=== PATIENT | female | born 1990 | race Caucasian/White ===

== ENCOUNTER 2018-04-20 13:19 | Emergency (ER) | payer OTHER ==
[2018-04-20 13:44] VITALS: RESP 18; TEMP 98.1
[2018-04-20] MEDS ORDERED: ACETAMINOPHEN TAB 500 MG TAB PO STA (14:20)
--- NOTE | 2018-04-20 14:31 | ED ---
General Adult HPI - General Chief complaint: Psychiatric Symptoms Stated complaint: EPS Kristie, 12 weeks preg Time Seen by Provider: 04/20/18 13:35 Source: patient, RN notes reviewed Mode of arrival: ambulatory Limitations: no limitations - History of Present Illness Initial comments: This a 27-year-old female with past medical history significant for bipolar and depression. Patient states she's been removed off all her medications she is 12 weeks and patient states since then he she's become more depressed. Patient states she's been cutting herself on her thighs a few days ago she did significant today. Patient states she fears that she might continue self harming. Patient denies any suicidal homicidal ideations. Patient denies any drinking or drug use. Patient states she has a headache currently denies any other symptoms. Patient states she has not been sick from the and denies any abdominal pain. - Related Data Home Medications Medication Instructions Recorded Confirmed Rev-Pewf-Mmyvb Acid 1 cap PO DAILY 04/20/18 04/20/18 [-U Capsule (formulary)] Allergies Allergy/AdvReac Type Severity Reaction Status Date / Time ciprofloxacin [From Cipro] Allergy Rash/Hives Verified 04/20/18 14:03 metronidazole [From Flagyl] Allergy Rash/Hives Verified 04/20/18 14:03 Review of Systems ROS Statement: Those systems with pertinent positive or pertinent negative responses have been documented in the HPI. ROS Other: All systems not noted in ROS Statement are negative. Past Medical History Past Medical History: Asthma Additional Past Medical History / Comment(s): borderline PD, agoraphobia History of Any Multi-Drug Resistant Organisms: None Reported Past Surgical History: Cholecystectomy Past Psychological History: ADD/ADHD, Anxiety, Bipolar, Depression, Panic Disorder Smoking Status: Current every day smoker Past Alcohol Use History: None Reported Past Drug Use History: None Reported General Exam - General Exam Comments Initial Comments: GENERAL: Patient is well-developed and well-nourished. Patient is nontoxic and well- hydrated and is in no acute distress. ENT: Neck is soft and supple. No significant lymphadenopathy is noted. Oropharynx is clear. Moist mucous membranes. Neck has full range of motion without eliciting any pain. EYES: The sclera were anicteric and conjunctiva were pink and moist. Extraocular movements were intact and pupils were equal round and reactive to light. Eyelids were unremarkable. PULMONARY: Unlabored respirations. Good breath sounds bilaterally. No audible rales rhonchi or wheezing was noted. CARDIOVASCULAR: There is a regular rate and rhythm without any murmurs gallops or rubs. ABDOMEN: Soft and nontender with normal bowel sounds. No palpable organomegaly was noted. There is no palpable pulsatile mass. SKIN: Skin is clear with no lesions or rashes and otherwise unremarkable. NEUROLOGIC: Patient is alert and oriented x3. Cranial nerves II through XII are grossly intact. Motor and sensory are also intact. Normal speech, volume and content. Symmetrical smile. MUSCULOSKELETAL: Normal extremities with adequate strength and full range of motion. LYMPHATICS: No significant lymphadenopathy is noted PSYCHIATRIC: Patient states very depressed has been self harming but she denies any suicidal ideations. Limitations: no limitations Course Vital Signs 04/20/18 13:37 Temperature 98.1 F Pulse Rate 107 H Respiratory 18 Rate Blood Pressure 120/74 O2 Sat by Pulse 100 Oximetry Medical Decision Making - Medical Decision Making Patient was evaluated by [facility] and decided the patient could follow-up as an outpatient. - Lab Data Lab Results 04/20/18 Range/Units 14:07 Urine Opiates Screen Not Detected (NotDetected) Ur Oxycodone Screen Not Detected (NotDetected) Urine Methadone Screen Not Detected (NotDetected) Ur Propoxyphene Screen Not Detected (NotDetected) Ur Barbiturates Screen Not Detected (NotDetected) U Tricyclic Antidepress Not Detected (NotDetected) Ur Phencyclidine Scrn Not Detected (NotDetected) Ur Amphetamines Screen Not Detected (NotDetected) U Methamphetamines Scrn Not Detected (NotDetected) U Benzodiazepines Scrn Not Detected (NotDetected) Urine Cocaine Screen Not Detected (NotDetected) U Marijuana (THC) Screen Not Detected (NotDetected) Disposition Clinical Impression: Depression, Self-harming behavior Disposition: HOME SELF-CARE Condition: Good Instructions (If sedation given, give patient instructions): Depression (ED) Is patient prescribed a controlled substance at d/c from ED?: No Referrals: Deangelo Dolan MD [Primary Care Provider] - 1-2 days Time of Disposition: 16:38
[2018-04-20 15:19] LABS: Amphetamine Screen,Urine Not Detected (NotDetected); Barbiturate Screen,Urine Not Detected (NotDetected); Benzodiazepines Screen,Urine Not Detected (NotDetected); Cocaine Screen,Urine Not Detected (NotDetected); Methadone Screen, Urine Not Detected (NotDetected); Opiate Screen,Urine Not Detected (NotDetected); Oxycodone Screen, Urine Not Detected (NotDetected); Phencyclidine Screen,Urine Not Detected (NotDetected); Tricyclic Antidepressant,Urine Not Detected (NotDetected); Urn Cannabinoid Scrn Not Detected (NotDetected)
[2018-04-20] MEDS ORDERED: diphenhydrAMINE 50 MG/ML 1 ML VIAL IM STA (16:48)
[2018-04-20 16:57] VITALS: BP 104/62; PULSE 101
== END 2018-04-20 17:03 | disposition home or self-care (01) ==
LOC: EC 13:19
DX: O99.341 Other mental disorders complicating pregnancy, first trimester (principal); F31.30 Bipolar disorder, current episode depressed, mild or moderate severity, unspecified; O99.89 Other specified diseases and conditions complicating pregnancy, childbirth and the puerperium; R51 Headache; Z91.5 Personal history of self-harm; O99.331 Smoking (tobacco) complicating pregnancy, first trimester; F17.200 Nicotine dependence, unspecified, uncomplicated; Z88.1 Allergy status to other antibiotic agents; Z3A.12 12 weeks gestation of pregnancy
CPT/HCPCS: 80306; 99284; 96372; J1200

== ENCOUNTER → 2018-04-22 | Outpatient (CLI) | payer OTHER ==
[2018-04-22 17:03] LABS: HCT 35.5 % (34.0-46.0); HGB 11.8 gm/dL (11.4-16.0); MCH 28.5 pg (25.0-35.0); MCHC 33.3 g/dL (31.0-37.0); MCV 85.4 fL (80.0-100.0); Mean Platelet Volume 6.6; Platelet Count 347 k/uL (150-450); RBC 4.16 m/uL (3.80-5.40); RDW 13.6 % (11.5-15.5); WBC 12.5 k/uL (3.8-10.6)
[2018-04-22 17:23] LABS: Glucose 89 mg/dL (74-99)
[2018-04-23 03:25] LABS: HIV 1 AB Non-Reactive (Non-Reactive); HIV AB P24 Non-Reactive (Non-Reactive); HIV P24 AG Non-Reactive (Non-Reactive)
[2018-04-23 05:35] LABS: Toxoplasma Antibody (IgM) <3.0 AU/mL (<8.0)
--- NOTE | 2018-04-23 07:04 | US ---
EXAMINATION TYPE: Transabdominal DATE OF EXAM: 04/22/2018 4:36 PM COMPARISON: NONE CLINICAL HISTORY: Z36 CONFIRM DATES. EXAM PERFORMED: Transabdominal (TA) EXAM MEASUREMENTS: GESTATIONAL AGE / DATING Physician Established: Not yet established Dates by LMP: LMP unknown Dates by First Scan: No previous this is first scan Dates by Current Scan for: (12 weeks/4 days) EDC: 10/31/2018 MATERNAL ANATOMY Uterus: 14.4 x 7.4 x 10.3 cm Right Ovary: 2.9 x 3.1 x 2.2 cm Left Ovary: 3.1 x 2.7 x 2.7 cm Post CDS / Adnexa: wnl Presence of free fluid: none GESTATION / SURVEY CRL: 5.9 cm (12 weeks/4 days) Yolk Sac (normal less than 6mm): not identified Heart Rate: 150 bpm Rhythm: Normal IUP: Viable IUP Date of LMP: unknown, irregular cycles Beta HcG (if available): not available Viable IUP at 12 Weeks, 4 days. IMPRESSION: Viable 12 weeks 4 days with a heart rate 150 bpm.
== END | disposition home or self-care (01) ==
LOC: EDUNIT# 15:40 → RADUSWWP 16:16
PROVIDERS: ATTEND Obstetrics & Gynecology
DX: Z36.89 Encounter for other specified antenatal screening (principal); Z34.81 Encounter for supervision of other normal pregnancy, first trimester
CPT/HCPCS: 36415; 76801; 82565; 82947; 85027; 86762; 86777; 86778; 86780; 87340; 87390

== ENCOUNTER 2018-06-02 14:04 | Emergency (ER) | payer OTHER ==
[2018-06-02] MEDS ORDERED: SODIUM CHLORIDE 0.9% 1,000 ML IV STA (14:39)
--- NOTE | 2018-06-02 14:42 | ED ---
General Adult HPI - General Chief complaint: Nausea/Vomiting/Diarrhea Stated complaint: vomiting/18 wks preg Time Seen by Provider: 06/02/18 14:20 Source: patient, RN notes reviewed Mode of arrival: ambulatory Limitations: no limitations - History of Present Illness Initial comments: 28-year-old female, G 4, P3, currently 18 weeks presenting for evaluation of nausea and vomiting. Patient has had approximately 3 days of nausea and vomiting. She was sent from her spray drier's office for evaluation and concern for dehydration. She's had no consultations with this . She was denying lower abdominal pain, denies current vaginal bleeding. Denies dysuria. She states she has had some decrease in urine output. - Related Data Home Medications Medication Instructions Recorded Confirmed Fnf-Lgyr-Aaiso Acid 1 cap PO DAILY 04/20/18 06/02/18 [-U Capsule (formulary)] Acetaminophen Tab [Tylenol Tab] 1,000 mg PO Q6HR PRN 06/02/18 06/02/18 QUEtiapine [SEROquel] 100 mg PO DAILY 06/02/18 06/02/18 Sertraline [Zoloft] 50 mg PO DAILY 06/02/18 06/02/18 Allergies Allergy/AdvReac Type Severity Reaction Status Date / Time ciprofloxacin [From Cipro] Allergy Rash/Hives Verified 06/02/18 14:42 metronidazole [From Flagyl] Allergy Rash/Hives Verified 06/02/18 14:42 Review of Systems ROS Statement: Those systems with pertinent positive or pertinent negative responses have been documented in the HPI. ROS Other: All systems not noted in ROS Statement are negative. Past Medical History Past Medical History: Asthma Additional Past Medical History / Comment(s): borderline PD, agoraphobia History of Any Multi-Drug Resistant Organisms: None Reported Past Surgical History: Cholecystectomy Past Psychological History: ADD/ADHD, Anxiety, Bipolar, Depression, Panic Disorder Smoking Status: Former smoker Past Alcohol Use History: None Reported Past Drug Use History: None Reported General Exam Limitations: no limitations General appearance: alert, in no apparent distress Head exam: Present: atraumatic, normocephalic Eye exam: Present: normal appearance, PERRL ENT exam: Present: normal exam Neck exam: Present: normal inspection. Absent: tenderness, meningismus Respiratory exam: Present: normal lung sounds bilaterally. Absent: respiratory distress, wheezes Cardiovascular Exam: Present: regular rate, normal rhythm GI/Abdominal exam: Present: soft, other (Gravid). Absent: distended, tenderness, guarding, rebound Extremities exam: Present: normal inspection, normal capillary refill. Absent: pedal edema Neurological exam: Present: alert, oriented X3. Absent: motor sensory deficit Psychiatric exam: Present: normal affect, normal mood Skin exam: Present: warm, dry, intact. Absent: cyanosis, diaphoretic Course Vital Signs 06/02/18 14:15 Temperature 98.2 F Pulse Rate 100 Respiratory 20 Rate Blood Pressure 120/76 O2 Sat by Pulse 96 Oximetry Medical Decision Making - Medical Decision Making 28 -year-old female presenting for evaluation of nausea vomiting and concern for dehydration. Patient is currently 18 weeks , no cold medications with . Workup in the emergency department reveals mild leukocytosis, 14.8, hemoglobin stable 13.4, electrolytes and kidney function within normal limits, urinalysis negative for ketones, negative for infection. Given IV hydration. No vomiting while in the emergency department. Patient was given strict return parameters including increased vomiting, decreased urine output, lack of stool output including flatus. She will monitor closely for signs of obstruction. She will return with any worsening or changing symptoms. - Lab Data Result diagrams: 06/02/18 14:34 06/02/18 14:34 Lab Results 06/02/18 06/02/18 06/02/18 Range/Units 14:34 14:34 14:49 WBC 14.8 H (3.8-10.6) k/uL RBC 4.80 (3.80-5.40) m/uL Hgb 13.4 (11.4-16.0) gm/dL Hct 40.0 (34.0-46.0) % MCV 83.3 (80.0-100.0) fL MCH 27.9 (25.0-35.0) pg MCHC 33.6 (31.0-37.0) g/dL RDW 14.2 (11.5-15.5) % Plt Count 429 (150-450) k/uL Neutrophils % 76 % Lymphocytes % 17 % Monocytes % 4 % Eosinophils % 1 % Basophils % 0 % Neutrophils # 11.2 H (1.3-7.7) k/uL Lymphocytes # 2.4 (1.0-4.8) k/uL Monocytes # 0.6 (0-1.0) k/uL Eosinophils # 0.2 (0-0.7) k/uL Basophils # 0.0 (0-0.2) k/uL Sodium 137 (137-145) mmol/L Potassium 4.5 (3.5-5.1) mmol/L Chloride 106 (98-107) mmol/L Carbon Dioxide 21 L (22-30) mmol/L Anion Gap 10 mmol/L BUN 8 (7-17) mg/dL Creatinine 0.39 L (0.52-1.04) mg/dL Est GFR (CKD-EPI)AfAm >90 (>60 ml/min/1.73 sqM) Est GFR (CKD-EPI)NonAf >90 (>60 ml/min/1.73 sqM) Glucose 80 (74-99) mg/dL Calcium 9.8 (8.4-10.2) mg/dL Total Bilirubin 0.5 (0.2-1.3) mg/dL AST 22 (14-36) U/L ALT 28 (9-52) U/L Alkaline Phosphatase 80 (38-126) U/L Total Protein 7.5 (6.3-8.2) g/dL Albumin 4.2 (3.5-5.0) g/dL Lipase 38 (23-300) U/L Urine Color Yellow Urine Appearance Clear (Clear) Urine pH 6.0 (5.0-8.0) Ur Specific Almo 1.026 (1.001-1.035) Urine Protein Trace H (Negative) Urine Glucose (UA) Negative (Negative) Urine Ketones Negative (Negative) Urine Blood Negative (Negative) Urine Nitrite Negative (Negative) Urine Bilirubin Negative (Negative) Urine Urobilinogen <2.0 (<2.0) mg/dL Ur Leukocyte Esterase Negative (Negative) Disposition Clinical Impression: Dehydration, Nausea and vomiting during Disposition: HOME SELF-CARE Condition: Good Instructions (If sedation given, give patient instructions): Acute Nausea and Vomiting (ED) Is patient prescribed a controlled substance at d/c from ED?: No Referrals: Deangelo Dolan MD [Primary Care Provider] - 1-2 days Time of Disposition: 15:39
[2018-06-02 15:04] LABS: Appearance,Urine Clear (Clear); Bilirubin,Urine Negative (Negative); Blood,Urine Negative (Negative); Color,Urine Yellow; Glucose,Urine (UA) Negative (Negative); Ketones,Urine Negative (Negative); Leukocyte Esterase,Urine Negative (Negative); Nitrite,Urine Negative (Negative); Protein,Urine Trace (Negative); Specific Gravity,Urine 1.026 (1.001-1.035); Urobilinogen,Urine <2.0 mg/dL (<2.0)
[2018-06-02 15:09] LABS: Basophils % (A) 0 %; Eosinophils # (A) 0.2 k/uL (0-0.7); Eosinophils % (A) 1 %; HGB 13.4 gm/dL (11.4-16.0); Lymphocytes # (A) 2.4 k/uL (1.0-4.8); Lymphocytes % (A) 17 %; MCH 27.9 pg (25.0-35.0); MCHC 33.6 g/dL (31.0-37.0); MCV 83.3 fL (80.0-100.0); Monocytes # (A) 0.6 k/uL (0-1.0); Monocytes % (A) 4 %; Neutrophils # (A) 11.2 k/uL (1.3-7.7); Neutrophils % (A) 76 %; Platelet Count 429 k/uL (150-450); RDW 14.2 % (11.5-15.5); WBC 14.8 k/uL (3.8-10.6)
[2018-06-02 15:10] LABS: ALT 28 U/L (9-52); AST 22 U/L (14-36); Albumin 4.2 g/dL (3.5-5.0); Alkaline Phosphatase 80 U/L (38-126); Anion Gap 10 mmol/L; Blood Urea Nitrogen 8 mg/dL (7-17); Calcium 9.8 mg/dL (8.4-10.2); Carbon Dioxide 21 mmol/L (22-30); Chloride 106 mmol/L (98-107); Glucose 80 mg/dL (74-99); Lipase 38 U/L (23-300); Potassium 4.5 mmol/L (3.5-5.1); Sodium 137 mmol/L (137-145); Total Bilirubin 0.5 mg/dL (0.2-1.3); Total Protein 7.5 g/dL (6.3-8.2)
[2018-06-02 16:16] VITALS: BP 118/86; PULSE 86; RESP 18; TEMP 98.1
== END 2018-06-02 16:15 | disposition home or self-care (01) ==
LOC: EC 14:04
DX: O21.9 Vomiting of pregnancy, unspecified (principal); O99.282 Endocrine, nutritional and metabolic diseases complicating pregnancy, second trimester; E86.0 Dehydration; O99.112 Other diseases of the blood and blood-forming organs and certain disorders involving the immune mechanism complicating pregnancy, second trimester; D72.829 Elevated white blood cell count, unspecified; O99.89 Other specified diseases and conditions complicating pregnancy, childbirth and the puerperium; R39.198 Other difficulties with micturition; R19.7 Diarrhea, unspecified; O99.342 Other mental disorders complicating pregnancy, second trimester; F32.9 Major depressive disorder, single episode, unspecified; F41.9 Anxiety disorder, unspecified; Z87.891 Personal history of nicotine dependence; Z3A.18 18 weeks gestation of pregnancy; Z79.899 Other long term (current) drug therapy; Z88.1 Allergy status to other antibiotic agents
CPT/HCPCS: 36415; 80053; 81003; 83690; 85025; 96360; 99284

== ENCOUNTER 2018-09-01 15:46 | Outpatient (CLI) | payer SELFPAY ==
[2018-09-01 16:23] LABS: Appearance,Urine Clear (Clear); Bilirubin,Urine Negative (Negative); Blood,Urine Negative (Negative); Color,Urine Yellow; Glucose,Urine (UA) Negative (Negative); Ketones,Urine Negative (Negative); Leukocyte Esterase,Urine Negative (Negative); Nitrite,Urine Negative (Negative); PH, Urine 6.5 (5.0-8.0); Protein,Urine Negative (Negative); Specific Gravity,Urine 1.011 (1.001-1.035); Urobilinogen,Urine <2.0 mg/dL (<2.0)
[2018-09-01 16:29] VITALS: BP 131/69; PULSE 101; RESP 16; TEMP 98.3
[2018-09-01 17:11] LABS: Basophils % (A) 0 %; Eosinophils # (A) 0.1 k/uL (0-0.7); Eosinophils % (A) 1 %; HCT 34.5 % (34.0-46.0); HGB 11.4 gm/dL (11.4-16.0); Lymphocytes # (A) 2.1 k/uL (1.0-4.8); Lymphocytes % (A) 14 %; MCH 27.5 pg (25.0-35.0); MCHC 33.2 g/dL (31.0-37.0); Monocytes # (A) 0.7 k/uL (0-1.0); Monocytes % (A) 4 %; Neutrophils # (A) 11.9 k/uL (1.3-7.7); Neutrophils % (A) 80 %; Platelet Count 371 k/uL (150-450); RBC 4.15 m/uL (3.80-5.40); RDW 14.7 % (11.5-15.5)
[2018-09-01 17:18] LABS: ALT 10 U/L (9-52); AST 16 U/L (14-36); African American GFR (CKD) >90 (>60 ml/min/1.73 sqM); Blood Urea Nitrogen 5 mg/dL (7-17); LDH 379 U/L (313-618); Non-African American GFR(CKD) >90 (>60 ml/min/1.73 sqM)
--- NOTE | 2018-09-11 11:07 | P.MSEPDOC ---
Presenting Problems - Arrival Data Date of Arrival on Unit: 09/01/18 Time of Arrival on Unit: 16:05 Mode of Transport: Ambulatory - Complaint OB-Reason for Admission/Chief Complaint: Other Comment: pt sent over from the office with elevated b/p's, no other syptoms. Pt has a history of elevated b/p's with 1st pregnany. Here for a [facility] work up Medical History - Information : 4 Para: 3 Term: 3 : 0 Abortions: Spontaneous or Elective: 0 Number of Living Children: 3 - Gestational Age Gestational Age by BRENDEN (wks/days): 31 Weeks and 3 Days - History Complications: Smoker Review of Systems - Review of Systems Constitutional: No problems Breast: No problems ENT: Nasal congestion Cardiovascular: No problems Respiratory: No problems Gastrointestinal: Diarrhea Genitourinary: No problems Musculoskeletal: No problems Neurological: No problems Skin: No problems Comment: pt has seasonal allergies, pt has diarrhea since gallbladder removed 3 years ago Vital Signs - Temperature Temperature: 98.3 F Temperature Source: Temporal Artery Scan - Pulse Pulse Oximetery Pulse Rate: 101 Pulse Assessment Method: Automatic Cuff - Respirations Respiratory Rate: 16 Oxygen Delivery Method: Room Air O2 Sat by Pulse Oximetry: 98 - Blood Pressure Right Arm Blood Pressure: 131/69 Blood Pressure Mean: 89 Blood Pressure Source: Automatic Cuff Medical Screen Scoring (Pre) - Cervical Exam Dilation: Exam Deferred Effacement: Exam Deferred Membranes: Intact - Uterine Contractions Frequency: N/A Duration: N/A Intensity: N/A - Maternal Vital Signs Maternal Temperature: N/A Maternal Blood Pressure: N/A Signs of Preeclampsia: N/A Maternal Respirations: N/A - Maternal Trauma Maternal Trauma: N/A - Assessment - Baby A Baseline FHR: 130 Heart Rate - NICHD Category: Category I (Normal) = 0 NST: Reactive Position: N/A Station: N/A - Total Score - Baby A Total Score - Baby A: 0 - Total Score - Baby B Total Score - Baby B: 0 - Total Score - Baby C Total Score - Baby C: 0 - Level of Risk - Baby A Level of Risk - Baby A: Low (0-5) - Level of Risk - Baby B Level of Risk - Baby B: Low (0-5) - Level of Risk - Baby C Level of Risk - Baby C: Low (0-5) - Pain Assessment Pain Scale Used: Numeric (1 - 10) Pain Intensity: 0 Physician Notification (Pre) - Physician Notified Physician Notified Date: 09/01/18 Physician/Practitioner Notifed:: DR Bah - Notification Comment Comment: Dr Bah seen patient in office and sent over to labor and delivery for evaluation. 1730- Labs and B/P's WNL, called Dr Bah at 1726, ok to d/s home Disposition - Disposition OB Disposition: Discharge to home Discharge Date: 09/01/18 Discharge Time: 17:30 I agree with the RN Medical Screening Exam: Yes Risk & Benefit of care provided described in d/c instruction: Yes Diagnosis: GESTATIONAL HTN W/O SIGNIFICANT PROTEINURIA, THIRD TRIMESTER
== END 2018-09-01 17:30 | disposition home or self-care (01) ==
LOC: FBPOP 15:46
PROVIDERS: ATTEND Obstetrics & Gynecology
DX: O13.3 Gestational [pregnancy-induced] hypertension without significant proteinuria, third trimester (principal); Z3A.31 31 weeks gestation of pregnancy
CPT/HCPCS: 81003; 82565; 82570; 83615; 84156; 84450; 84460; 84520; 84550; 85025; 99215

== ENCOUNTER 2018-10-04 19:30 | Outpatient (CLI) | payer SELFPAY ==
[2018-10-04 20:58] VITALS: BP 128/71; PULSE 120; RESP 18; TEMP 98.3
--- NOTE | 2018-10-13 08:42 | P.MSEPDOC ---
Presenting Problems - Arrival Data Date of Arrival on Unit: 10/04/18 Time of Arrival on Unit: 19:30 Mode of Transport: Ambulatory - Complaint OB-Reason for Admission/Chief Complaint: Rule Out SROM Comment: Pt presents to triage with c/o fluid gush at 1630 today. Medical History - Information : 4 Para: 3 Term: 3 : 0 Abortions: Spontaneous or Elective: 0 Number of Living Children: 3 - Gestational Age Gestational Age by BRENDEN (wks/days): 36 Weeks and 1 Days - History Comment: Pt has not been in for scheduled office visit since last appointment which was 09/01/2018. Discussed importance of calling office tomorrow and making an appoitment curtis. Pt verbalizes understanding. Review of Systems - Review of Systems Constitutional: No problems Breast: No problems ENT: No problems Cardiovascular: No problems Respiratory: No problems Gastrointestinal: No problems Genitourinary: No problems Musculoskeletal: No problems Neurological: No problems Skin: No problems Vital Signs - Temperature Temperature: 98.3 F Temperature Source: Oral - Pulse Brachial Pulse Rate: 120 Pulse Assessment Method: Pulse Oximetry - Respirations Respiratory Rate: 18 Oxygen Delivery Method: Room Air - Blood Pressure Right Arm Blood Pressure: 128/71 Blood Pressure Mean: 90 Blood Pressure Source: Automatic Cuff Medical Screen Scoring (Pre) - Cervical Exam Dilation: 1-3 cm = 1 Membranes: Intact - Uterine Contractions Frequency: N/A - Maternal Vital Signs Maternal Temperature: N/A Maternal Blood Pressure: N/A Signs of Preeclampsia: N/A Maternal Respirations: N/A - Maternal Trauma Maternal Trauma: N/A - Assessment - Baby A Baseline FHR: 145 Heart Rate - NICHD Category: Category I (Normal) = 0 NST: Reactive Position: N/A Station: N/A - Total Score - Baby A Total Score - Baby A: 1 - Total Score - Baby B Total Score - Baby B: 1 - Total Score - Baby C Total Score - Baby C: 1 - Level of Risk - Baby A Level of Risk - Baby A: Low (0-5) - Level of Risk - Baby B Level of Risk - Baby B: Low (0-5) - Level of Risk - Baby C Level of Risk - Baby C: Low (0-5) Physician Notification (Pre) - Physician Notified Physician Notified Date: 10/04/18 Physician Notified Time: 20:20 Physician/Practitioner Notifed:: Dr. Bah Spoke With: Dr. Bah New Order Received: Yes (Discharge to home) - Notification Comment Comment: Notified Dr. Bah of negative amnisure, reactive NST and irregular contraction pattern. Vitals WNL, pulse rate noted 115-120 but that pt states she is feeling anxious. Orders received to have pt make office apt tomorrow for a scheduled visit. Discharge home. Disposition - Disposition OB Disposition: Discharge to home Discharge Date: 10/04/18 Discharge Time: 20:24 I agree with the RN Medical Screening Exam: Yes Risk & Benefit of care provided described in d/c instruction: Yes Diagnosis: FALSE LABOR AT OR AFTER 37 COMPLETED WEEKS OF GESTATION
== END 2018-10-04 20:24 | disposition home or self-care (01) ==
LOC: FBPOP 19:30
PROVIDERS: ATTEND Obstetrics & Gynecology
DX: O47.03 False labor before 37 completed weeks of gestation, third trimester (principal); Z3A.36 36 weeks gestation of pregnancy
CPT/HCPCS: 59025; 84112; 99213

== ENCOUNTER 2018-10-06 15:18 | Inpatient (IN) | payer OTHER ==
--- NOTE | 2018-10-06 16:35 | US ---
EXAMINATION TYPE: US OB >= 14 wk fetus DATE OF EXAM: 10/06/2018 COMPARISON: OB <14 wks only CLINICAL HISTORY: INCONSISTENT CARE - NOT SEEN SINCE 32 WEEKS EFW, SAUL TECHNIQUE: Transabdominal (TA) GESTATIONAL AGE / DATING Physician Established: (37 weeks/2 days) EDC: 10/25/2018 Dates by First Scan: (36 weeks/3 days) EDC: 10/31/2018 Dates by Current Scan: (33 weeks/4 days) EDC: 11/20/2018 SURVEY IUP: Single PLACENTA: Anterior PREVIA: No Previa SAUL: 1.6 cm Oligohydramnios CERVICAL LENGTH (transabdominal: norm > 3.0cm): 2.3 cm BIOMETRY PRESENTATION: Vertex BPD: 8.0 cm 32 weeks / 0 days HC: 30.6 cm 34 weeks / 1 days AC: 30.9 cm 34 weeks / 6 days FL: 6.6 cm 34 weeks / 1 days ESTIMATED WEIGHT IN GRAMS: 2396 grams ESTIMATED WEIGHT IN LBS/OZ: 5 lbs. 5 oz. WEIGHT PERCENTAGE BASED ON ESTABLISHED DATES: 3.9% HC/AC: 0.99 Normal FL/AC: 22 Normal HEART RATE: 137 bpm RHYTHM: Normal Single, viable IUP/ Growth parameters 3.9 percentile, low SAUL Results given to Gisel CORDON in L&D at time of exam IMPRESSION: There is oligohydramnios. The estimated weight is 3.9 percentile. This is consistent with IUGR. Follow-up recommended.
[2018-10-06] MEDS ORDERED: LIDOCAINE 0.5% (PF) 5 MG/ML (50 ML SDV) SQ PRN (16:58)
[2018-10-06] MEDS ORDERED: CARBOPROST TROMETHAMINE 250 MCG/ML 1 ML AMP IM PRN (16:58)
[2018-10-06] MEDS ORDERED: OXYTOCIN 10 UNIT/ML 1 ML VIAL IM PRN (16:58)
[2018-10-06] MEDS ORDERED: TERBUTALINE 1 MG/ML VIAL SQ PRN (16:58)
[2018-10-06] MEDS ORDERED: METHYLERGONOVINE 0.2 MG/ML 1 ML AMP IM PRN (16:58)
--- NOTE | 2018-10-06 16:59 | P.HPOB ---
History of Present Illness H&P Date: 10/06/18 Chief Complaint: Intrauterine at 37 weeks: Oligohydramnios Lynette is a 28-year-old at 37 weeks gestation who arrives my office having not been seen since 32 weeks. She had a groupie strep test done today and as precaution she was sent for nonstress tests and ultrasound for SAUL and EFW. Ultrasound shows an amniotic fluid index of 1. She was here on Thursday and sponge and rupture membranes was ruled out by amnio sure, however its unclear if she really did rupture on Thursday her she's been having a slow leak for longer than that or if she is just has oligohydramnios and she has not been seen in 5 weeks. We are initiated and induction of labor she was dilated to centimeters 80% effaced -2 station and Pitocin augmentation of labor will be initiated. She is uncertain as to whether not she wants to IV pain meds versus epidural versus no pain meds at all. Her Precis course has been complicated by lack of care and she is on multiple occasions had large gaps in her care. She went from 12 weeks in 19 weeks and then again from 19 weeks to 30 weeks' without being seen in the interim. We have had multiple discussions on her need to be seen him much closer aces in follow-up and then from 32 weeks to 37 week she again was not seen. She relates that she lost her insurance and she was concerned that we would see her due to that despite having been reassured on previous visits that that is not the case. She does have a history of preeclampsia with her first baby but no blood pressure or other issues during this . Pertinent labs did include A+ blood type, Rh antibody was negative. Rubella was immune, hepatitis B surface antigen/RPR/HIV were all negative. Groupie strep prophylaxis has been initiated with Cleocin 600 mg every 8 hours as she has and urinary tract infection as well and is likely nonspecific septal to ampicillin. All the questions were answered for her prior to the initiation of the induction. On physical exam vital signs are stable and afebrile. Heart regular, lungs clear, extremities without pain. Abdomen soft gravid uterus is noted. Category 1 tracing is been noted. Assessment intrauterine at term. Oligohydramnios? Rupture membranes over a long period of time. Plan induction of labor with expectation for spontaneous vaginal delivery. Past Medical History Past Medical History: Asthma Additional Past Medical History / Comment(s): borderline PD, agoraphobia History of Any Multi-Drug Resistant Organisms: None Reported Past Surgical History: Cholecystectomy Smoking Status: Former smoker Medications and Allergies Home Medications Medication Instructions Recorded Confirmed Type Hyf-Ajpz-Ccogh Acid 1 cap PO DAILY 04/20/18 10/06/18 History [-U Capsule (formulary)] Sertraline [Zoloft] 100 mg PO DAILY 06/02/18 10/06/18 History Allergies Allergy/AdvReac Type Severity Reaction Status Date / Time ciprofloxacin [From Cipro] Allergy Rash/Hives Verified 10/04/18 19:43 metronidazole [From Flagyl] Allergy Rash/Hives Verified 10/04/18 19:43 Exam Osteopathic Statement: *. No significant issues noted on an osteopathic structural exam other than those noted in the History and Physical/Consult. Vital Signs Temp Pulse Resp BP Pulse Ox 10/06/18 15:29 96.3 F L 123 H 18 133/72 98 Intake and Output 10/06/18 10/06/18 10/06/18 06:59 14:59 22:59 Other: Weight 122.47 kg
[2018-10-06] MEDS ORDERED: LACTATED RINGERS 1,000 ML IV SCH (17:00)
[2018-10-06] MEDS ORDERED: OXYTOCIN 30 UNITS/500 ML NS 30 UNIT in SALINE 1 500ML.BAG IV SCH (17:00)
[2018-10-06 17:12] LABS: Basophils % (A) 0 %; Eosinophils # (A) 0.1 k/uL (0-0.7); Eosinophils % (A) 1 %; HCT 37.2 % (34.0-46.0); HGB 12.3 gm/dL (11.4-16.0); Lymphocytes # (A) 2.2 k/uL (1.0-4.8); Lymphocytes % (A) 16 %; MCH 26.9 pg (25.0-35.0); MCV 81.7 fL (80.0-100.0); Mean Platelet Volume 6.9; Monocytes # (A) 0.6 k/uL (0-1.0); Monocytes % (A) 5 %; Neutrophils # (A) 10.4 k/uL (1.3-7.7); Neutrophils % (A) 77 %; Platelet Count 419 k/uL (150-450); Poikilocytosis Slight; RBC 4.55 m/uL (3.80-5.40); RDW 14.4 % (11.5-15.5); WBC 13.4 k/uL (3.8-10.6)
[2018-10-06] MEDS ORDERED: CLINDAMYCIN 150 MG/ML 4 ML VIAL IM SCH (18:00)
[2018-10-06 19:25] VITALS: BMI 47.8
[2018-10-06] MEDS ORDERED: CLINDAMYCIN 600 MG in DEXTROSE 5% IN WATER 50 ML IVPB SCH ×2 (21:00)
[2018-10-06 23:54] LABS: Appearance,Urine Cloudy (Clear); Bacteria,Urine Few /hpf; Bilirubin,Urine Negative (Negative); Blood,Urine Small (Negative); Color,Urine Yellow; Glucose,Urine (UA) Negative (Negative); Ketones,Urine 2+ (Negative); Leukocyte Esterase,Urine Moderate (Negative); Mucus,Urine Moderate /hpf; Nitrite,Urine Positive (Negative); Protein,Urine Negative (Negative); RBC,Urine 6 /hpf (0-5); Specific Gravity,Urine 1.011 (1.001-1.035); Squamous Epithelial Cell,Urine 1 /hpf (0-4); Urobilinogen,Urine <2.0 mg/dL (<2.0)
--- NOTE | 2018-10-06 23:55 | P.PROBDLV ---
Vaginal Delivery Note - . Vaginal Delivery Note: The patient progressed to complete dilation after oxytocin induction of labor and artificial rupture membranes with no fluid noted. Please see history and physical for details of patient's admission. She did receive antibiotic prophylaxis secondary to possible prolonged rupture membranes. She declined any pain medication during labor. Once reaching complete dilation, she began pushing. 's head came to a crown. With one further push the 's head delivered across the perineum followed by the anterior shoulder and the remainder the infant. Nose and mouth were bulb suctioned after delivery. Cord was clamped and cut and was taken to warmer for evaluation. A viable female was noted with scores of 7 at 1 minute and 7 at 5 minutes and weight of 5 pounds 15.8 ounces. Placenta delivered shortly thereafter, intact, with a three-vessel cord. A foul odor was noted. Placenta will be sent secondary to possible prolonged rupture of membranes and oligohydramnios. Inspection of the perineum revealed no perineal lacerations. Uterus did contract fairly well after oxytocin was given and uterine massage was carried out. A gloved hand was placed within the endometrial cavity and no further placental tissue was palpated. Estimated blood loss is approximately 150 mL. Mother is in stable condition. was taken to nursery for evaluation.
[2018-10-07] MEDS ORDERED: diphenhydrAMINE 50 MG/ML 1 ML VIAL IVP PRN ×2 (00:37)
[2018-10-07] MEDS ORDERED: ZOLPIDEM 5 MG TAB PO PRN (00:37)
[2018-10-07] MEDS ORDERED: LANOLIN CREAM 5 GM TUBE TOPICAL PRN (00:37)
[2018-10-07] MEDS ORDERED: HYDROCORTISONE 2.5% RECTAL CREAM 30 GM TUBE RECTAL PRN (00:37)
[2018-10-07] MEDS ORDERED: diphenhydrAMINE 50 MG CAP PO PRN (00:37)
[2018-10-07] MEDS ORDERED: SIMETHICONE 80 MG CHEWABLE PO PRN (00:37)
[2018-10-07] MEDS ORDERED: ACETAMINOPHEN TAB 325 MG TAB PO PRN (00:37)
[2018-10-07] MEDS ORDERED: diphenhydrAMINE 25 MG CAP PO PRN (00:37)
[2018-10-07] MEDS ORDERED: WITCH HAZEL 1 EACH MED..PAD TOPICAL PRN (00:37)
[2018-10-07] MEDS ORDERED: OXYTOCIN 20 UNITS/1000 ML NS 1,000 ML IV SCH (00:45)
[2018-10-07] MEDS: IBUPROFEN 600 MG TAB PO PRN ×2 (01:25→11:51)
[2018-10-07 04:42] LABS: Amphetamine Screen,Urine Not Detected (NotDetected); Barbiturate Screen,Urine Not Detected (NotDetected); Benzodiazepines Screen,Urine Not Detected (NotDetected); Cocaine Screen,Urine Not Detected (NotDetected); Methadone Screen, Urine Not Detected (NotDetected); Opiate Screen,Urine Not Detected (NotDetected); Phencyclidine Screen,Urine Not Detected (NotDetected); Tricyclic Antidepressant,Urine Not Detected (NotDetected)
[2018-10-07 04:43] LABS: Oxycodone Screen, Urine Not Detected (NotDetected); Urn Cannabinoid Scrn Not Detected (NotDetected)
--- NOTE | 2018-10-07 07:21 | P.DS ---
Providers Date of admission: 10/06/18 16:48 Expected date of discharge: 10/07/18 Attending physician: Alberto Bah Primary care physician: Stated None Hospital Course: This is a 28 year old female 4 para 3 at 37-3/7 weeks who presented after being seen in the office by Dr. Bah and had an ultrasound performed in triage. Ultrasound showed a SAUL of 1.6. She did state that she had thought she was ruptured and came in on Thursday to was told she was not ruptured at that time. She was therefore admitted and started on oxytocin and clindamycin for prolonged rupture of membranes. She delivered vaginally a viable female on 10/06/2018 with scores of 7 at 1 minute and 7 at 5 minutes and weight of 5 pounds 15.8 ounces. Her course has been essentially uncomplicated however baby did get transfer to [facility] due to a pneumothorax. She would like to go home as soon as she possibly can. Bleeding has been minimal. Vital signs are stable. Abdomen is firm and nontender. Extremities show negative Homans. Impression is status post vaginal delivery day #1. Plan is to discharge home later this morning after CBC is received. She will be given a prescription for ibuprofen and also Keflex to complete due to UTI. She is advised to follow up with Dr. Bah in the office in 6 weeks. She is advised to call the office if she has any further questions or concerns prior to her appointment time. Routine instructions are given. Procedures: Oxytocin induction of labor Spontaneous vaginal delivery of a viable female infant on 10/06/2018 Patient Condition at Discharge: Stable Plan - Discharge Summary New Discharge Prescriptions: New Cephalexin [Keflex] 500 mg PO Q6HR #28 cap Ibuprofen [Motrin] 600 mg PO Q6HR PRN #60 tab PRN Reason: Mild Pain Or Fever >= 100.5 Continue Jrr-Kxbe-Rwnvu Acid [-U Capsule (formulary)] 1 cap PO DAILY No Action Sertraline [Zoloft] 100 mg PO DAILY Discharge Medication List Fcx-Nlhq-Izvxh Acid [-U Capsule (formulary)] 1 cap PO DAILY 04/20/18 [History] Sertraline [Zoloft] 100 mg PO DAILY 06/02/18 [History] Cephalexin [Keflex] 500 mg PO Q6HR #28 cap 10/07/18 [Rx] Ibuprofen [Motrin] 600 mg PO Q6HR PRN #60 tab 10/07/18 [Rx] Follow up Appointment(s)/Referral(s): Alberto Bah DO [Doctor of Osteopathic Medicine] - 6 Weeks Activity/Diet/Wound Care/Special Instructions: Instructions 1. Do not begin any exercise program for 3 weeks. 2. Do not resume sexual relations for 3 weeks or longer if uncomfortable. 3. You may take tub baths or showers at any time. 4. You may use tampons if desired after 3 weeks. 5. Keep the area of episiotomy (stitches) clean and dry. 6. If you are not nursing, wear a good fitting, supportive bra during the day and limit fluid intake for at least 1 week to prevent breast engorgement. 7. Call the office, [phone], within the next week to make appointment for your 6 week checkup if it has not already been made. 8. Report any of the following occurrences to the doctor promptly: a. Heavy, excessive bleeding b. Chills, fever c. Burning or frequency of urination d. Pain or redness and breasts if nursing e. Increasing pain or swelling in episiotomy (stitches). In addition to the above instructions, the following additional should be followed: 1. No heavy lifting or straining (exercising) until after 6 week checkup. 2. Keep abdominal incision clean and dry: You may wear a dressing if more c omfortable. 3. Make office appointment for 10 days after going home or as instructed by her doctor. Discharge Disposition: HOME SELF-CARE
[2018-10-07 07:52] LABS: Basophils % (A) 0 %; Eosinophils # (A) 0.1 k/uL (0-0.7); Eosinophils % (A) 1 %; HCT 32.7 % (34.0-46.0); HGB 10.8 gm/dL (11.4-16.0); Lymphocytes # (A) 2.3 k/uL (1.0-4.8); Lymphocytes % (A) 15 %; MCH 27.8 pg (25.0-35.0); MCHC 33.1 g/dL (31.0-37.0); Mean Platelet Volume 6.9; Monocytes # (A) 0.8 k/uL (0-1.0); Monocytes % (A) 5 %; Neutrophils % (A) 78 %; Platelet Count 367 k/uL (150-450); RDW 13.8 % (11.5-15.5); WBC 15.4 k/uL (3.8-10.6)
[2018-10-07] MEDS ORDERED: SENNOSIDES-DOCUSATE SODIUM 1 EACH TAB PO SCH (08:00)
[2018-10-07 10:00] VITALS: BP 114/70; PULSE 96; RESP 18; TEMP 98.4
== END 2018-10-07 12:45 | disposition home or self-care (01) | DRG 805 ==
LOC: FBPOP 15:18 → 4FBP 16:48
PROVIDERS: ADMIT Obstetrics & Gynecology; ATTEND Obstetrics & Gynecology
PROC: 10E0XZZ Delivery of Products of Conception, External Approach (ICD-10-PCS; principal; 2018-10-06)
PROC: 10907ZC Drainage of Amniotic Fluid, Therapeutic from Products of Conception, Via Natural or Artificial Opening (ICD-10-PCS; 2018-10-06)
PROC: 3E033VJ Introduction of Other Hormone into Peripheral Vein, Percutaneous Approach (ICD-10-PCS; 2018-10-06)
DX: O41.03X0 Oligohydramnios, third trimester, not applicable or unspecified (principal); O75.3 Other infection during labor; Z37.0 Single live birth; N39.0 Urinary tract infection, site not specified; O99.344 Other mental disorders complicating childbirth; O42.92 Full-term premature rupture of membranes, unspecified as to length of time between rupture and onset of labor; F40.00 Agoraphobia, unspecified; F60.3 Borderline personality disorder; O99.52 Diseases of the respiratory system complicating childbirth; J45.909 Unspecified asthma, uncomplicated; Z3A.37 37 weeks gestation of pregnancy; Z87.891 Personal history of nicotine dependence; Z88.1 Allergy status to other antibiotic agents; Z79.899 Other long term (current) drug therapy
CPT/HCPCS: 59025; 76805; 80306; 81001; 85025; 86850; 86900; 86901; 87086